=== PATIENT | male | born 1940 | race Caucasian/White ===

== ENCOUNTER 2018-05-06 14:21 | Inpatient (IN) | payer OTHER, MEDICAID ==
[~2018-05-06 14:21] MED LIST: CEFAZOLIN 1 GM INJ; LIDOCAINE 2% (SDV) 5 ML INJ; ROCURONIUM 50 MG INJ; metroNIDAZOLE 500 MG/100 ML NS IVPB
[2018-05-06] MEDS: metroNIDAZOLE 500 MG/NS (PMX) 100 ML IVPB (15:30)
[2018-05-06] MEDS: CIPROFLOXACIN 400MG/D5W 200 ML IVPB (15:30)
[2018-05-06 15:51] LABS: INR 1.09; PROTIME 14.2 Sec (11.9-14.9); PT RATIO 1.1
[2018-05-06] MEDS: LIDOCAINE 1% (MPF) 30 ML INJ (17:18)
[2018-05-06] MEDS ORDERED: PROPOFOL 20 ML (17:23)
[2018-05-06] MEDS ORDERED: ACETAMINOPHEN 1000MG/100ML IV 100 ML (17:23)
[2018-05-06] MEDS ORDERED: ROCURONIUM 50 MG INJ (17:23)
[2018-05-06] MEDS ORDERED: DEXAMETHASONE 4 MG/ML 1 ML INJ (17:24)
[2018-05-06] MEDS ORDERED: ONDANSETRON 4 MG INJ (17:25)
[2018-05-06] MEDS ORDERED: ROPIVACAINE 0.5 % 30 ML VIAL (17:32)
[2018-05-06] MEDS ORDERED: SUGAMMADEX SODIUM 200 MG/2 ML VIAL IV (17:53)
[2018-05-06] MEDS: IBUPROFEN 600 MG TAB PO ×2 (18:00→23:24)
[2018-05-06] MEDS ORDERED: MIDAZOLAM 1 MG/ML 2 ML INJ IV (18:30)
[2018-05-06] MEDS ORDERED: MEPERIDINE 25 MG INJ IV (18:30)
[2018-05-06] MEDS ORDERED: ONDANSETRON 4 MG INJ IV (18:30)
[2018-05-06] MEDS ORDERED: HYDROmorphONE 1 MG/5 ML IV SYRINGE IV (18:30)
[2018-05-06] MEDS ORDERED: METOCLOPRAMIDE 10 MG INJ IV (18:30)
[2018-05-06] MEDS ORDERED: DIPHENHYDRAMINE 50 MG INJ IV (18:30)
[2018-05-06] MEDS ORDERED: LABETALOL HCL 20MG INJ IV (18:30)
[2018-05-06] MEDS ORDERED: FENTAnyl 50 MCG/ML VIAL IV ×3 (18:30)
[2018-05-06] MEDS ORDERED: hydrALAzine 20 MG INJ IV (18:30)
[2018-05-06] MEDS ORDERED: ALBUTEROL 0.083% (NEB) 2.5 MG/3 ML AMP HHN (18:30)
[2018-05-06] MEDS ORDERED: EPHEDrine SULFATE 50 MG/5 ML SYG IV (18:30)
[2018-05-06] MEDS ORDERED: KETOROLAC 30 MG INJ IV (18:30)
[2018-05-06] MEDS: HYDROmorphONE 1 MG/5 ML IV SYRINGE IV ×4 (18:56→19:35)
[2018-05-06] MEDS: D5-NS + KCL 20 MEQ 1,000 ML IV (21:04)
[2018-05-06] MEDS: ACETAMINOPHEN 500 MG TAB PO (22:00)
[2018-05-07] MEDS: IBUPROFEN 600 MG TAB PO ×5 (06:00→23:47)
[2018-05-07] MEDS: ACETAMINOPHEN 500 MG TAB PO ×3 (06:27→22:02)
[2018-05-07] MEDS: ENOXAPARIN 40 MG/0.4 ML SYG SC (06:30)
[2018-05-07 06:41] LABS: BLOOD UREA NITROGEN 17 mg/dl (7-20)
[2018-05-07 06:41] LABS: CREATININE 0.88 mg/dl (0.61-1.24)
[2018-05-07] MEDS: D5-NS + KCL 20 MEQ 1,000 ML IV ×3 (07:50→22:02)
[2018-05-07] MEDS: ONDANSETRON 4 MG INJ IV (09:37)
[2018-05-07] MEDS: morphine 2 MG INJ IV (10:11)
[2018-05-07] MEDS: FERROUS SULFATE (EC) 325 MG TAB PO (22:02)
[2018-05-08 05:53] LABS: ADD MAN DIFF? NO
[2018-05-08] MEDS: ACETAMINOPHEN 500 MG TAB PO ×3 (06:00→21:21)
[2018-05-08 06:01] LABS: BASOPHILS % 0.2 % (0.0-2.0); EOSINOPHILS # 0.1 10^3/ul (0.0-0.5); EOSINOPHILS % 0.6 % (0.0-7.0); HEMATOCRIT 24.3 % (42.0-52.0); HEMOGLOBIN 7.3 g/dl (14.0-18.0); LYMPHOCYTES # 1.2 10^3/ul (0.8-2.9); LYMPHOCYTES % 12.3 % (15.0-51.0); MEAN CORPUSCULAR HEMOGLOBIN 23.3 pg (29.0-33.0); MEAN CORPUSCULAR VOLUME 77.6 fl (82.0-101.0); MEAN PLATELET VOLUME 9.3 fl (7.4-10.4); MONOCYTE # 0.8 10^3/ul (0.3-0.9); MONOCYTES % 7.8 % (0.0-11.0); NEUTROPHILS % 78.7 % (39.0-77.0); PLATELET COUNT 307 10^3/UL (140-415); RED BLOOD COUNT 3.13 10^6/ul (4.70-6.10); RED CELL DISTRIBUTION WIDTH 19.9 % (11.5-14.5)
[2018-05-08 06:01] LABS: WHITE BLOOD COUNT 10.1 10^3/ul (4.8-10.8)
[2018-05-08] MEDS: IBUPROFEN 600 MG TAB PO ×4 (06:03→23:54)
[2018-05-08] MEDS: PANTOPRAZOLE (EC) 40 MG TAB PO (06:03)
[2018-05-08] MEDS: ENOXAPARIN 40 MG/0.4 ML SYG SC (06:07)
[2018-05-08 06:14] LABS: MAGNESIUM 1.7 mg/dl (1.7-2.5)
[2018-05-08 06:16] LABS: ANION GAP 11 (8-16); BLOOD UREA NITROGEN 16 mg/dl (7-20); CALCIUM 8.4 mg/dl (8.4-10.2); CARBON DIOXIDE 26 mmol/L (21-31); CHLORIDE 111 mmol/L (97-110); CREATININE 1.07 mg/dl (0.61-1.24); GLUCOSE 98 mg/dl (70-220); POTASSIUM 4.6 mmol/L (3.5-5.1); SODIUM 143 mmol/L (135-144)
[2018-05-08] MEDS: FERROUS SULFATE (EC) 325 MG TAB PO ×2 (08:57→21:21)
[2018-05-08] MEDS: DOCUSATE SODIUM 100 MG CAP PO ×2 (11:33→21:21)
[2018-05-08 11:39] LABS: HEMATOCRIT 25.2 % (42.0-52.0); HEMOGLOBIN 7.5 g/dl (14.0-18.0)
[2018-05-08] MEDS: SOD CHLORIDE 0.9% 250 ML IV* (16:35)
[2018-05-08] MEDS ORDERED: OXYCODONE/ACETAMINOPHEN (5/325) TAB PO (18:00)
[2018-05-08] MEDS ORDERED: morphine LIQ (10 MG/5 ML) CUP PO (18:00)
[2018-05-08 21:58] LABS: IMMEDIATE SPIN CROSSMATCH 1 4
[2018-05-09] MEDS: IBUPROFEN 600 MG TAB PO ×2 (05:03→11:59)
[2018-05-09] MEDS: PANTOPRAZOLE (EC) 40 MG TAB PO (05:03)
[2018-05-09] MEDS: ACETAMINOPHEN 500 MG TAB PO ×2 (05:04→13:52)
[2018-05-09 05:15] LABS: ADD MAN DIFF? NO
[2018-05-09 05:22] LABS: WHITE BLOOD COUNT 11.7 10^3/ul (4.8-10.8)
[2018-05-09 05:22] LABS: BASOPHILS % 0.3 % (0.0-2.0); EOSINOPHILS # 0.2 10^3/ul (0.0-0.5); EOSINOPHILS % 1.5 % (0.0-7.0); HEMATOCRIT 26.8 % (42.0-52.0); HEMOGLOBIN 8.3 g/dl (14.0-18.0); LYMPHOCYTES # 1.6 10^3/ul (0.8-2.9); LYMPHOCYTES % 13.6 % (15.0-51.0); MEAN CORPUSCULAR HEMOGLOBIN 24.1 pg (29.0-33.0); MEAN CORPUSCULAR VOLUME 77.7 fl (82.0-101.0); MEAN PLATELET VOLUME 9.2 fl (7.4-10.4); MONOCYTE # 1.2 10^3/ul (0.3-0.9); MONOCYTES % 10.2 % (0.0-11.0); NEUTROPHIL # 8.6 10^3/ul (1.6-7.5); PLATELET COUNT 291 10^3/UL (140-415); RED BLOOD COUNT 3.45 10^6/ul (4.70-6.10); RED CELL DISTRIBUTION WIDTH 19.1 % (11.5-14.5)
[2018-05-09] MEDS: FERROUS SULFATE (EC) 325 MG TAB PO (09:16)
[2018-05-09] MEDS: DOCUSATE SODIUM 100 MG CAP PO (09:16)
== END 2018-05-09 15:30 | disposition home health service (06) | DRG 331 ==
LOC: REC 14:21 → MS1 20:34
PROC: 0DTF4ZZ Resection of Right Large Intestine, Percutaneous Endoscopic Approach (ICD-10-PCS; principal; 2018-05-06 16:52)
PROC: 30233N1 Transfusion of Nonautologous Red Blood Cells into Peripheral Vein, Percutaneous Approach (ICD-10-PCS; 2018-05-06 16:52)
DX: C18.2 Malignant neoplasm of ascending colon (principal); D63.0 Anemia in neoplastic disease
CPT/HCPCS: 36430; 80048; 82565; 83735; 84520; 85014; 85018; 85025; 85610; 85730; 86850; 86900; 86901; 86920; 87086; 88307